=== PATIENT | male | born 1980 | race Native Hawaiian/Other Pacific Islander ===

== ENCOUNTER 2022-03-25 12:55 | Emergency (ER) | payer OTHER ==
[~2022-03-25] VITALS: Ht 167.6 cm; Wt 81.6 kg
[2022-03-25 12:55] VITALS: BP 108/69; TEMP 98
[2022-03-25 13:29] LABS: PLATELET COUNT 231 K/uL (142-355)
[2022-03-25 13:38] LABS: POTASSIUM 4.6 mmol/L (3.6-5.2)
[2022-03-25] MEDS ORDERED: ASCO500T18 PO (16:35)
[2022-03-25] MEDS ORDERED: LIPITOR40 MG PO (16:35)
[2022-03-25] MEDS ORDERED: LANTUS100 UNIT/M SC (16:37)
[2022-03-25] MEDS ORDERED: MULTIVITAMI1 PO (16:37)
[2022-03-25] MEDS ORDERED: FLUOXETINE40 MG PO (16:38)
[2022-03-25] MEDS ORDERED: TAMS0.4C PO (16:39)
[2022-03-25] MEDS ORDERED: TRAZ50TA36 PO (16:39)
[2022-03-25] MEDS ORDERED: BENZ1TAB43 PO (16:40)
[2022-03-25] MEDS ORDERED: LACTOBACILLUS PO (16:41)
[2022-03-25] MEDS ORDERED: IRON SUPPL PO (16:41)
[2022-03-25] MEDS ORDERED: BUSPIRONE HYDR7.5 MG PO (16:43)
[2022-03-25] MEDS ORDERED: ZINC220 M1 PO (16:44)
[2022-03-25] MEDS ORDERED: GABA400C2 PO (16:44)
[2022-03-25] MEDS ORDERED: INSULIN LI100 UNIT/1 SC (16:47)
[2022-03-25] MEDS ORDERED: MUCUS RELIEF400 M1 PO (16:48)
[2022-03-25] MEDS ORDERED: OXYC5TAB24 PO (16:49)
[2022-03-25] MEDS ORDERED: CLOTRIMAZOLE12 TOP (16:50)
[2022-03-25] MEDS ORDERED: CLIN300C PO (16:52)
== END 2022-03-25 15:07 | disposition still patient (30) ==
LOC: ED 12:55
PROVIDERS: Emergency Medicine
DX: R46.89 Other symptoms and signs involving appearance and behavior (principal); Z11.52 Encounter for screening for COVID-19; Z04.6 Encounter for general psychiatric examination, requested by authority
CPT/HCPCS: 80053; 85027; 87635; 93005; 99283; U0003

== ENCOUNTER 2022-09-05 17:03 | Emergency (ER) | payer OTHER ==
[~2022-09-05] VITALS: Ht 177.8 cm; Wt 85.3 kg
[~2022-09-05 17:03] MED LIST: ASCO500T18 PO; ATOR20TA2 PO; BENZ1TAB43 PO; BUSP5TAB2 PO; BUSPIRONE HYDR7.5 MG PO; CLIN300C PO; CLINDAMYCIN HC150 MG PO; CLOT1CRE11 TOP; CLOTRIMAZOLE12 TOP; CONGENTIN 1MG TAB PO; FERROUS SULF325 MG PO; FLUOXETINE20 MG PO; FLUOXETINE40 MG PO; GABA400C2 PO; INSU100P SC; INSU300I SC; INSULIN LI100 UNIT/1 SC; IRON SUPPL PO; LACTOBACILLUS PO; LACTTAB PO; LANTUS100 UNIT/M SC; LIPITOR20 MG PO; MAGNSUS68 PO; MUCUS RELIEF400 M1 PO; MULTIVITAMI1 PO; MULTTAB52 PO; OXYC5TAB24 PO; TAMS0.4C PO; TRAZ50TA36 PO; ZINC220 MG PO; ZINC220C4 PO
[2022-09-05 17:11] VITALS: BP 129/79; TEMP 97.3
[2022-09-05 17:15] LABS: PLATELET COUNT 229 K/uL (142-355)
[2022-09-05 17:30] LABS: POTASSIUM 4.4 mmol/L (3.6-5.2)
[2022-09-05] MEDS ORDERED: ASA LOW DOSE81 MG PO (19:40)
[2022-09-05] MEDS ORDERED: LEVEMIR FL100 UNIT/M SC (19:42)
[2022-09-05] MEDS ORDERED: HALO50IN4 IM (19:42)
[2022-09-05] MEDS ORDERED: ASPERCREME LIDOCA41 EX (19:43)
[2022-09-05] MEDS ORDERED: QUET25TA2 PO (19:45)
[2022-09-05] MEDS ORDERED: IRON325 MG PO (19:46)
[2022-09-05] MEDS ORDERED: GRALISE600 MG PO (19:49)
[2022-09-05] MEDS ORDERED: BUSPIRONE5 MG PO (19:49)
[2022-09-05] MEDS ORDERED: NOVOLOG100 UNIT/M SC (19:51)
[2022-09-05] MEDS ORDERED: CLARITIN10 M1 PO (19:52)
[2022-09-05] MEDS ORDERED: HALO5INJ3 IM (19:53)
[2022-09-05] MEDS ORDERED: MILK OF MA400 MG/5 M PO (19:54)
[2022-09-05] MEDS ORDERED: LORA1TAB17 PO (19:55)
[2022-09-05] MEDS ORDERED: ONDA4TAB3 PO (19:55)
== END 2022-09-05 18:19 | disposition still patient (30) ==
LOC: ED 17:03
PROVIDERS: Emergency Medicine Emergency Medical Services
DX: Z02.79 Encounter for issue of other medical certificate (principal); R45.6 Violent behavior; J16.8 Pneumonia due to other specified infectious organisms
CPT/HCPCS: 80053; 85027; 87635; 93005; 96372; 99283; J0696; U0003